=== PATIENT | female | born 1975 | race Caucasian/White ===

== ENCOUNTER 2020-06-14 10:34 | Outpatient (CLI) | payer BC, MEDICARE, SELFPAY ==
[2020-06-14 10:54] VITALS: BP 156/89; PULSE 89; RESP 19; TEMP 36.4; O2SAT 95
--- NOTE | 2020-06-14 11:09 | AMB.MCA ---
Patient Information Referred by: Stefany Symptom onset date: 06/11/20 COVID 19 common symptoms: positive fever(s), cough and non-productive cough COVID 19 other sytmptoms: negative chest pressure, chest pain, pleuritic pain, requiring oxygen or requiring more oxygen Severity: moderate Treatment prior to arrival: none [facility] COVID test results: No Data to Display outside results available, scanned (Scanned in from ) Criteria/Plan Inclusion/Exclusion Criteria weight >/= 40kg, + direct test </= 10 days ago and symptom onset </= 10 days ago has diabetes, receiving immunosuppressive therapy and has immunosuppressive disease not requiring hospitalization, not requiring oxygen (if not chronically on oxygen) and no increase oxygen requirement (if chronically on oxygen) Patient education patient/caregiver received/reviewed fact sheet, Emergency Use Authorization/unapproved drug status discussed with patient/caregiver, alternatives to this treatment discussed with patient/caregiver, risks and benefits of medication reviewed with patient/caregiver, patient/caregiver given opportunity for questions, which were answered and patient/caregiver consents to receiving Monoclonal Antibody Treatment Plan for treatment Meets criteria for Monoclonal Antibody infusion Ordering Monoclonal Antibody infusion for today
[2020-06-14 11:42] VITALS: BMI 36.9
[2020-06-14 12:11] VITALS: BP 131/76; PULSE 82; RESP 17; TEMP 36.6; O2SAT 98
[2020-06-14 12:26] VITALS: BP 149/91; PULSE 77; RESP 16; TEMP 36.5; O2SAT 98
--- NOTE | 2020-06-19 15:52 | DCPLANNER ---
Addendum entered by Ofelia Mccord 06/26/20 15:54: manager human resources called to check on patient 10 days after getting the BAM infusion. Patient stated that she is doing good, the infusion is doing its job. Patient stated that she has not been admitted to the hospital. Addendum entered by Ofelia Mccord 06/21/20 15:54: manager human resources called to check on patient after receiving the BAM infusion. Patient stated that she is feeling much better, still has a headache, no fever, and just a little cough. Original Note: manager human resources had message that patient received the BAM infusion. manager human resources called to check on patient after receiving the infusion. Patient stated that she tolorated the infusion good. Patient stated before the infusion that she had fever, she was short of breath, had a cough, and had a headache. Patient stated that after the infusion that she did not have a fever, a little bit of shortness of breath, she did not have a cough, no headache. Patient stated that she is feeling better, that the infusion helped quite a bit. Patient had a telehealth visit with her primary care 06.18.20.
== END 2020-06-14 13:40 | disposition home or self-care (01) ==
PROVIDERS: Family Provider Internal Medicine; PCP Internal Medicine; Referring Provider Nurse Practitioner Family; Visit Provider Internal Medicine Rheumatology
DX: U07.1 COVID-19 (principal)
CPT/HCPCS: J7050

== ENCOUNTER 2021-05-10 19:17 | Emergency (ER) | payer MEDICARE, BC, SELFPAY ==
--- NOTE | 2021-05-10 19:21 | W.ED.SOB ---
HPI - SOB/Dyspnea General: Chief Complaint: Asthma Stated Complaint: SOB Time Seen by Provider: 05/10/21 19:20 History of Present Illness: HPI Narrative: Ms. 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 Symptoms began approximately 1 week ago initially with sinus pressure and congestion. Yesterday she developed cough with yellow productive sputum. She tried her typical home therapies and felt like she was doing okay however subsequently worsened, cough was dry this morning and she feels more short of breath. Worse with exertion. She tried multiple albuterol treatments without significant relief. Overall the intensity symptoms is moderate to severe. Course has been worsening. She has had subjective fevers and chills. No other signs of systemic illness. She is vaccinated against Covid, does have sick exposures with young children. No other new exacerbating or alleviating factors identified. Patient does have a history of Covid and also history of recurrent pneumonia as well as viral pneumonia. She describes after Covid having a prolonged course and being a long hauler . Review of Systems General: Reports: 10 or more systems reviewed and unremarkable except in HPI and below PFSH ED PFSH: Medical History History of asthma Hx of diabetes mellitus Physical Exam Narrative: EXAM NARRATIVE: GENERAL/CONSTITUTIONAL - well-appearing. Increased respiratory effort Eyes - PERRL, no conjunctival injection ENMT - Atraumatic external nose and ears. Moist mucous membranes NECK - supple. trachea midline CARDIOVASCULAR - regular rate and rhythm. No significant peripheral edema RESPIRATORY -diminished to auscultation bilaterally, trace wheezes throughout. Tachypnea, dyspnea with full sentences. ABDOMEN/GI - Nontender/Nondistended. MSK - Extremities without obvious deformity or tenderness to palpation SKIN - Warm, Dry NEURO - alert and appropriately oriented. Moves all extremities equally. Course ED course: - Patient was seen and evaluated by me at bedside - Patient placed on cardiac monitors, IV access obtained - Initial evaluation notable for tachypnea, increased respiratory effort, diminished with some wheezes. Patient is dyspneic when attempting to speak full sentences however no evidence of fatigue or impending intervention required -RT treatment ordered. - Labs notable for no leukocytosis. Metabolic panel notable for decreased bicarb and increased anion gap. Delta troponin negative. Initially blood gas with marked respiratory alkalosis. Salicylate level added given surprising results of initial blood gas and was negative - Imaging notable for no evidence of pneumonia on chest x-ray. Given severity of patient's symptoms and history of autoimmune disorder/vasculitis CTA is warranted. No pulmonary embolism. - Upon serial reexamination after treatment the patient was significantly improved. Repeat blood gas with normalization of pH. Patient's respiratory effort is markedly improved and appears normal. Lung sounds improved. - Based on patient history, evaluation, labs, and imaging as interpreted the most likely cause of the patient's condition is respiratory distress with improvement after treatment. - The results of ED evaluation were discussed with the patient including prescriptions and/or symptomatic cares (if applicable) including appropriate and responsible use, followup plan, and return precautions. The patient verbalized understanding and felt safe for discharge. - Patient discharged in satisfactory condition. Vital Signs: Vital signs: Vital Signs Temperature 97.4 F L 05/10/21 19:22 Pulse Rate 88 05/10/21 23:18 Respiratory Rate 17 05/10/21 23:18 Blood Pressure 145/78 05/10/21 23:18 Pulse Oximetry 98 05/10/21 23:18 MDM - SOB/Dyspnea Medical Records: Attestation: I reviewed the patient's medical records. Lab Data: Attestation: I reviewed the patient's lab results. Labs: Lab Results 05/10/21 05/10/21 05/10/21 19:39 20:00 20:00 WBC 7.2 10^3/uL 10^3/ uL (4.0-10.0) RBC 4.94 10^6/uL 10^6 /uL (4.1-5.3) Hgb 14.5 g/dL g/dL (11.5-15.3) Hct 40.8 % % (37.0-47.0) MCV 82.6 fl fl (81-99) MCH 29.4 pg pg (28.0-34.0) MCHC 35.5 g/dL g/dL (30.0-36.0) RDW 12.3 % % (12.1-15.1) Plt Count 301 10^3/cmm 10^3 /cmm (130-400) MPV 9.1 fL fL (7.4-10.4) Neut % (Auto) 55.3 % % Lymph % (Auto) 33.0 % % [place] % (Auto) 8.7 % % Eos % (Auto) 2.2 % % Baso % (Auto) 0.4 % % Neut # (Auto) 3.95 10^3/uL 10^3 /uL (1.8-7.7) Lymph # (Auto) 2.4 10^3/uL 10^3/ uL (0.8-4.8) [place] # (Auto) 0.6 10^3/uL 10^3/ uL (0.2-0.9) Eos # (Auto) 0.2 10^3/uL 10^3/ uL (0.0-0.8) Baso # (Auto) 0.0 10^3/uL 10^3/ uL (0.0-0.1) Nucleated RBC % (a uto) 0 % % Nucleated RBCs # 0.0 /100WBC /100W BC Specimen Type Arterial Sample Site Radial, right ABG pH 7.73 H* (7.35-7.45) ABG pCO2 14.3 mmHg L* mmHg (35-45) ABG pO2 116.0 mmHg H mmHg (80.0-100.0) ABG HCO3 18.9 mmol/L L mmo l/L (22-26) ABG Base Excess 2.8 mmol/L H mmol /L (-2.0-2.0) Leonardo Test Pos VBG pH VBG pCO2 VBG pO2 VBG HCO3 VBG Base Excess VBG Hematocrit Hematocrit 44.0 % % (37-47) Hgb O2 Saturation 98.3 % % (95-100) Carboxyhemoglobin 0.7 %THgb %THgb (0.4-20.1) Methemoglobin 0.8 % % (0.4-1.5) Total Hemoglobin 14.4 g/dL g/dL (12-16) O2 Delivery Device Room air Mix House Tender ID [email or web address] Sodium 136 mmol/L mmol/L (136-145) Potassium 3.6 mmol/L mmol/L (3.5-5.1) Chloride 100 mmol/L mmol/L (98-107) Carbon Dioxide 17 mmol/L L mmol/ L (22-29) Anion Gap 22.6 H (5-19) BUN 11 mg/dL mg/dL (6-20) Creatinine 0.6 mg/dL mg/dL (0.5-0.9) GFR Calculation 107.2 mL/min mL/m in (90-130) Glucose 238 mg/dL H mg/dL (65-115) Calculated Osmolal ity 289 mOsm/kg mOsm/ kg (285-295) Lactic Acid Calcium 8.5 mg/dL mg/dL (8.5-10.5) Total Bilirubin 0.2 mg/dL mg/dL (0.15-1.2) AST 14 U/L U/L (0-32) ALT 19 U/L U/L (0-33) Alkaline Phosphata se 151 IU/L H IU/L (35-105) Troponin T Baselin e Troponin T 120 Min [place] Delta Troponin T NT-Pro-B Natriuret Pep 36 pg/mL pg/mL (0-125) Total Protein 6.7 g/dL g/dL (6.6-8.7) Albumin 4.1 g/dL g/dL (3.5-5.2) Globulin 2.6 g/dL g/dL (1.3-4.6) Procalcitonin 0.03 ng/mL ng/mL (0-0.5) Salicylates Influenza Type A A g Influenza Type B A g SARS-CoV-2 Ag (Rap id) 05/10/21 05/10/21 05/10/21 20:00 20:00 20:00 WBC RBC Hgb Hct MCV MCH MCHC RDW Plt Count MPV Neut % (Auto) Lymph % (Auto) [place] % (Auto) Eos % (Auto) Baso % (Auto) Neut # (Auto) Lymph # (Auto) [place] # (Auto) Eos # (Auto) Baso # (Auto) Nucleated RBC % (a uto) Nucleated RBCs # Specimen Type Sample Site ABG pH ABG pCO2 ABG pO2 ABG HCO3 ABG Base Excess Leonardo Test VBG pH VBG pCO2 VBG pO2 VBG HCO3 VBG Base Excess VBG Hematocrit Hematocrit Hgb O2 Saturation Carboxyhemoglobin Methemoglobin Total Hemoglobin O2 Delivery Device Mix House Tender ID Sodium Potassium Chloride Carbon Dioxide Anion Gap BUN Creatinine GFR Calculation Glucose Calculated Osmolal ity Lactic Acid Calcium Total Bilirubin AST ALT Alkaline Phosphata se Troponin T Baselin e 9 ng/L ng/L (0-10) Troponin T 120 Min [place] Delta Troponin T NT-Pro-B Natriuret Pep Total Protein Albumin Globulin Procalcitonin Salicylates Influenza Type A A g Negative (Negative) Influenza Type B A g Negative (Negative) SARS-CoV-2 Ag (Rap id) Negative (Negative) 05/10/21 05/10/21 05/10/21 20:00 22:06 22:10 WBC RBC Hgb Hct MCV MCH MCHC RDW Plt Count MPV Neut % (Auto) Lymph % (Auto) [place] % (Auto) Eos % (Auto) Baso % (Auto) Neut # (Auto) Lymph # (Auto) [place] # (Auto) Eos # (Auto) Baso # (Auto) Nucleated RBC % (a uto) Nucleated RBCs # Specimen Type Venous Sample Site Not specified ABG pH ABG pCO2 ABG pO2 ABG HCO3 ABG Base Excess Leonardo Test N/a VBG pH 7.40 (7.32-7.42) VBG pCO2 42.9 mmHg mmHg (41-51) VBG pO2 30.3 mmHg mmHg (25-40) VBG HCO3 26.8 mmol/L mmol/ L (24-28) VBG Base Excess 1.7 mmol/L mmol/L (-3.0-3.0) VBG Hematocrit 42.1 % % (37-47) Hematocrit Hgb O2 Saturation Carboxyhemoglobin Methemoglobin Total Hemoglobin O2 Delivery Device Mix House Tender ID [email or web address] Sodium Potassium Chloride Carbon Dioxide Anion Gap BUN Creatinine GFR Calculation Glucose Calculated Osmolal ity Lactic Acid 1.8 mmol/L mmol/L (0.5-2.2) Calcium Total Bilirubin AST ALT Alkaline Phosphata se Troponin T Baselin e Troponin T 120 Min [place] Delta Troponin T NT-Pro-B Natriuret Pep Total Protein Albumin Globulin Procalcitonin Salicylates < 0.3 mg/dL L mg/ dL (3-10) Influenza Type A A g Influenza Type B A g SARS-CoV-2 Ag (Rap id) 05/10/21 22:10 WBC RBC Hgb Hct MCV MCH MCHC RDW Plt Count MPV Neut % (Auto) Lymph % (Auto) [place] % (Auto) Eos % (Auto) Baso % (Auto) Neut # (Auto) Lymph # (Auto) [place] # (Auto) Eos # (Auto) Baso # (Auto) Nucleated RBC % (a uto) Nucleated RBCs # Specimen Type Sample Site ABG pH ABG pCO2 ABG pO2 ABG HCO3 ABG Base Excess Leonardo Test VBG pH VBG pCO2 VBG pO2 VBG HCO3 VBG Base Excess VBG Hematocrit Hematocrit Hgb O2 Saturation Carboxyhemoglobin Methemoglobin Total Hemoglobin O2 Delivery Device Mix House Tender ID Sodium Potassium Chloride Carbon Dioxide Anion Gap BUN Creatinine GFR Calculation Glucose Calculated Osmolal ity Lactic Acid Calcium Total Bilirubin AST ALT Alkaline Phosphata se Troponin T Baselin e Troponin T 120 Min [place] 8.62 ng/L ng/L (0-10) Delta Troponin T -0.38 ABS# L ABS# (0-10) NT-Pro-B Natriuret Pep Total Protein Albumin Globulin Procalcitonin Salicylates Influenza Type A A g Influenza Type B A g SARS-CoV-2 Ag (Rap id) EKG Data^: EKG 1: Attestation: I personally reviewed and interpreted this EKG as follows: EKG Interpretation Date: 05/10/21 EKG interpretation time: 19:53 Interpretation: Twelve-lead EKG shows a regular rhythm at a rate of 80. FL interval 156, QRS duration 90, QTc 425. Normal axis Interpretation: Sinus rhythm. Nonspecific ST segment abnormalities. EKG 2: Attestation: I personally reviewed and interpreted this EKG as follows: EKG Interpretation Date: 05/10/21 EKG interpretation time: 21:48 Interpretation: Twelve-lead EKG shows a regular rhythm at a rate of 80. FL interval 174, QRS duration 98, QTc 447. Normal axis. Interpretation: Sinus rhythm. Discharge Plan Discharge Patient Disposition: Home Clinical Impression: Asthma with acute exacerbation Condition: Stable Prescriptions: New prednisone 50 mg tablet 50 mg PO DAILY 5 Days Qty: 5 RF: 0 doxycycline hyclate 100 mg tablet 100 mg PO BID 7 Days Qty: 14 RF: 0 albuterol sulfate 90 mcg/actuation HFA aerosol inhaler See Rx Instructions .ROUTE .COMPLEX Qty: 8.5 RF: 0 No Action Leukeran 2 mg Tablet 4 mg PO DAILY RF: 0 diltiazem HCl 240 mg Tablet Extended Release 24 Hr 240 mg PO DAILY RF: 0 Humira Pen 40 mg/0.8 mL Pen Injector Kit 40 mg SUBCUT Q14D RF: 0 Toujeo Max U-300 SoloStar 300 unit/mL (3 mL) Insulin Pen 80 unit SUBCUT DAILY RF: 0 Otezla Starter 30 mg 30 mg PO DAILY RF: 0 Discharge Orders: Discharge ED (Routine); Ordered 05/10/21 Ordered By: Santos Rai Referrals: Re Wilcox MD [Primary Care Provider] - Discharge Diet: Usual diet Discharge Activity: Resume usual activity Patient Instructions: Asthma (ED) Activity Restrictions/Additional Instructions: Thank you for visiting the emergency department. You were seen and evaluated for shortness of breath. The exact cause of your symptoms is unclear though likely related to exacerbation of your asthma. We are pleased that this improved with treatment. You will be given prescriptions. Please follow-up with your primary care provider. Please return to the emergency department for worsening symptoms or anything else that you are concerned about and feel needs emergency department evaluation. Coding Level of Care Code ED Commercial Hvac Service Technician for Terell oTrrez
[2021-05-10 19:22] VITALS: BP 154/86; PULSE 104; RESP 26; TEMP 36.3; O2SAT 100; BMI 38.4
--- NOTE | 2021-05-10 19:39 | XRR_ITS ---
PROCEDURE INFORMATION: Exam: XR Chest Exam date and time: 05/10/2021 7:39 PM Age: 46 years old Clinical indication: Shortness of breath; Additional info: SOB TECHNIQUE: Imaging protocol: XR of the chest. Views: 1 view. COMPARISON: No relevant prior studies available. FINDINGS: Lungs: Unremarkable. No consolidation. Pleural spaces: Unremarkable. No pleural effusion. No pneumothorax. Heart/Mediastinum: Unremarkable. No cardiomegaly. Bones/joints: Unremarkable. XR/XR chest 1V portable [id number] IMPRESSION: No acute findings. Radiation Dose CTDIVOL = (mGy): DLP = (mGy-cm)
--- NOTE | 2021-05-10 19:39 | ECG_ITS ---
[facility] Test Date: 2021-05-10 Pat Name: Lisa Diana Department: Room: Gender: Female Treater Helper: : 1975 Requested By: Santos Rai Order Number: [id number] Luis Fernando MD: LASHAE RUIZ Measurements Intervals [place] Rate: 80 P: 41 SC: 156 QRS: 48 QRSD: 90 T: 30 QT: 389 QTc: 451 Interpretive Statements SINUS RHYTHM No previous ECG available for comparison Electronically Signed On 05-13-2021 12:56:11 PASTRY COOK HELPER by LASHAE RUIZ [id number]
[2021-05-10 20:02] LABS: Base Excess ABG 2.8 mmol/L (-2.0-2.0); Blood Gas Allen Test Pos; Blood Gas Sample Site Radial, right; Blood Gas Sample Type Arterial; Carboxyhemoglobin 0.7 %THgb (0.4-20.1); HCO3 ABG 18.9 mmol/L (22-26); HGB O2 Sat 98.3 % (95-100); Methemoglobin 0.8 % (0.4-1.5); Oxygen Device ROOM AIR; Total Hemoglobin 14.4 g/dL (12-16)
[2021-05-10 20:04] LABS: ABG PCO2 14.3 mmHg (35-45); ABG PH Result 7.73 (7.35-7.45)
[2021-05-10 20:06] LABS: Basophils % 0.4 %; Eosinophils # 0.2 10^3/uL (0.0-0.8); Eosinophils % 2.2 %; Hematocrit 40.8 % (37.0-47.0); Hemoglobin 14.5 g/dL (11.5-15.3); Lymphocytes # 2.4 10^3/uL (0.8-4.8); Mean Corpuscular HGB Conc 35.5 g/dL (30.0-36.0); Mean Corpuscular Hemoglobin 29.4 pg (28.0-34.0); Mean Corpuscular Volume 82.6 fl (81-99); Mean Platelet Volume 9.1 fL (7.4-10.4); Monocytes # 0.6 10^3/uL (0.2-0.9); Monocytes % 8.7 %; Neutrophils # 3.95 10^3/uL (1.8-7.7); Neutrophils % 55.3 %; Nucleated Red Blood Cells % 0 %; Platelet Count 301 10^3/cmm (130-400); Red Blood Count 4.94 10^6/uL (4.1-5.3); Red Cell Distribution Width 12.3 % (12.1-15.1); White Blood Count 7.2 10^3/uL (4.0-10.0)
[2021-05-10] MEDS: sodium chloride 0.9% 500 ML 999 ML IV (20:10)
[2021-05-10 20:23] VITALS: PULSE 85; RESP 36; O2SAT 100
[2021-05-10] MEDS: ipratropium-albuterol 3 mL Neb INHALATION (20:25)
[2021-05-10 20:27] VITALS: BP 146/80; PULSE 78; RESP 18; O2SAT 96
[2021-05-10 20:34] LABS: Influenza A by IFA Negative (Negative); Influenza B by IFA Negative (Negative)
[2021-05-10 20:35] LABS: SARS Covid-2 Antigen Negative (Negative)
[2021-05-10 20:40] LABS: Troponin(5th) Baseline 9 ng/L (0-10)
[2021-05-10 20:41] LABS: NT Pro B Type Natriuretic Pept 36 pg/mL (0-125); Procalcitonin 0.03 ng/mL (0-0.5)
[2021-05-10 20:53] LABS: Alanine Aminotransferase 19 U/L (0-33); Albumin Level 4.1 g/dL (3.5-5.2); Alkaline Phosphatase 151 IU/L (35-105); Anion Gap 22.6 (5-19); Aspartate Amino Transferase 14 U/L (0-32); Blood Urea Nitrogen 11 mg/dL (6-20); Calcium 8.5 mg/dL (8.5-10.5); Carbon Dioxide 17 mmol/L (22-29); Chloride 100 mmol/L (98-107); Globulin 2.6 g/dL (1.3-4.6); Glomerular Filtration Rate 107.2 mL/min (90-130); Glucose 238 mg/dL (65-115); Osmolality Calculated 289 mOsm/kg (285-295); Potassium 3.6 mmol/L (3.5-5.1); Sodium 136 mmol/L (136-145); Total Bilirubin 0.2 mg/dL (0.15-1.2); Total Protein 6.7 g/dL (6.6-8.7)
[2021-05-10 21:08] LABS: Salicylate < 0.3 mg/dL (3-10)
--- NOTE | 2021-05-10 21:11 | CTR_ITS ---
PROCEDURE INFORMATION: Exam: CTA Chest With Contrast Exam date and time: 05/10/2021 9:11 PM Age: 46 years old Clinical indication: Cough and dyspnea and shortness of breath; Patient HX: Cough with SOB and dyspnea. Pco2 of 14.3. History of vasculitis. ; Additional info: Resp distress, history vasculitis TECHNIQUE: Imaging protocol: Computed tomographic angiography of the chest with contrast. 3D rendering (Not supervised by radiologist): MIP and/or 3D reconstructed images were created by the technologist. Radiation optimization: All CT scans at this facility use at least one of these dose optimization techniques: automated exposure control; mA and/or kV adjustment per patient size (includes targeted exams where dose is matched to clinical indication); or iterative reconstruction. Contrast material: OMNI 350; Contrast volume: 116 ml; Contrast route: INTRAVENOUS (IV); COMPARISON: CR (CHEST, ) 05/10/2021 8:08 PM RADIATION DOSE METRICS: Total DLP (mGy-cm): 1207.35 FINDINGS: Pulmonary arteries: Normal. No pulmonary emboli. Aorta: Unremarkable. No aortic aneurysm. No aortic dissection. Lungs: Unremarkable. No consolidation. No masses. Pleural spaces: Unremarkable. No pneumothorax. No pleural effusion. Heart: Unremarkable. No cardiomegaly. No pericardial effusion. Lymph nodes: Unremarkable. No enlarged lymph nodes. Bones/joints: Unremarkable. No acute fracture. Soft tissues: Unremarkable. CT/CT angio chest PE protcl [id number] IMPRESSION: No acute findings. Radiation Dose CTDIVOL = (mGy): DLP = 1207.35 (mGy-cm)
[2021-05-10] MEDS: iohexol 350 mg/mL 100 mL Btl IV ×2 (21:29→21:33)
--- NOTE | 2021-05-10 21:39 | ECG_ITS ---
[facility] Test Date: 2021-05-10 Pat Name: Lisa Diana Department: Room: Gender: Female Marketing Secretary: : 1975 Requested By: Santos Rai Order Number: [id number] Reading MD: LASHAE RUIZ Measurements Intervals [place] Rate: 80 P: 43 VT: 174 QRS: 0 QRSD: 98 T: 12 QT: 411 QTc: 477 Interpretive Statements SINUS RHYTHM Compared to ECG 05/10/2021 19:46:20 No significant changes Electronically Signed On 05-13-2021 13:01:55 WINDING RACK OPERATOR by LASHAE RUIZ [id number]
[2021-05-10 22:44] LABS: Lactic Sepsis W/Reflex 1.8 mmol/L (0.5-2.2)
[2021-05-10 22:46] LABS: Base Excess VBG 1.7 mmol/L (-3.0-3.0); Blood Gas Sample Site Not specified; Blood Gas Sample Type Venous; HCO3 VBG 26.8 mmol/L (24-28); PCO2 VBG 42.9 mmHg (41-51); PO2 VBG 30.3 mmHg (25-40); Venous Blood Gas Hematocrit 42.1 % (37-47)
[2021-05-10 23:04] LABS: Troponin 5 2HR 8.62 ng/L (0-10)
[2021-05-10 23:07] LABS: Troponin 5 2HR Delta -0.38 ABS# (0-10)
[2021-05-10 23:18] VITALS: BP 145/78; PULSE 88; RESP 17; O2SAT 98
== END 2021-05-10 23:22 | disposition home or self-care (01) ==
PROVIDERS: Emergency Provider Emergency Medicine; PCP Internal Medicine
DX: J45.901 Unspecified asthma with (acute) exacerbation (principal); M35.2 Behcet's disease
CPT/HCPCS: 36600; 71045; 71275; 80053; 80307; 82803; 82805; 83605; 83880; 84145; 84484; 85025; 87040; 87426; 87804; 93005; 94640; 99284; J2930; J7040; Q9967

== ENCOUNTER 2021-06-25 20:07 | Observation (INO) | payer BC, MEDICARE, SELFPAY ==
[2021-06-25 20:11] VITALS: BP 163/75; PULSE 89; RESP 16; TEMP 37; O2SAT 98; BMI 38.4
--- NOTE | 2021-06-25 20:16 | ED_ITS ---
HPI - Chest Pain General: Chief Complaint: Chest Pain Stated Complaint: Chest Pains Time Seen by Provider: 06/25/21 20:15 History of Present Illness: HPI narrative: Mr. Diana is a 46-year-old lady with complex past medical history including COVID long-haul, Behcet's disease, history of endocarditis with resultant minor heart attack , history of arrhythmia, and history of intermittent chest pain who presents emergency department due to chest pain. She reports symptom onset at rest after eating at approximately 630 or 7 this evening. She denies specific provoking event that she can recall. She has pressure that is in her chest and radiates to the neck and down the left arm. Mild associated nausea and lightheadedness. Associated generalized malaise. She reports that this is similar to prior episodes which she gets roughly weekly however those typically with nitroglycerin x1 and this 1 has persisted despite nitroglycerin x2. She denies infectious symptoms. Overall the course of symptoms has persisted. Intensity is moderate to severe. No other specific changes in health, exacerbating, relieving factors identified. MD complaint: chest discomfort Pertinent past history: prior OR Onset (ago): hour(s) Timing of current episode: constant and increasing Prior episodes: Yes Onset: after eating Pain location: substernal Pain radiation: left arm and neck Severity: moderate Quality: other Relieving factors: nothing Associated symptoms: Reports dyspnea and nausea Treatment prior to arrival: nitroglycerin Review of Systems General: Reports: 10 or more systems reviewed and unremarkable except in HPI and below Resp: Reports: dyspnea GI: Reports: nausea [facility] ED PFSH: Medical History (Updated 06/27/21 @ 00:01 by ) Behcet's disease History of asthma History of hypothyroidism Hx of diabetes mellitus Hx of endocrine hypertension Hx of steroid therapy Surgical History No significant past surgical history Family History Denies family history of Family history of premature coronary artery disease Social History Smoking and tobacco status: never smoked Physical Exam Const: COMMON NORMALS: alert GENERAL APPEARANCE: cooperative and well developed HENMT: COMMON NORMALS: normocephalic and atraumatic HEAD & SCALP: normocephalic and atraumatic THROAT: posterior oropharynx normal Eye: COMMON NORMALS: conjunctivae normal CONJUNCTIVA: Yes conjunctivae normal SCLERA: sclerae normal Neck/C-Spine: COMMON NORMALS: supple GENERAL: Yes trachea midline Resp: COMMON NORMALS: normal respiratory effort EFFORT & INSPECTION: Yes able to speak in complete sentences Cardio: COMMON NORMALS: regular rate and regular rhythm RATE: regular rate RHYTHM: regular rhythm GI: COMMON NORMALS: Soft to palpation PALPATION: Yes Soft to palpation and No Tenderness to palpation present (GI) PERCUSSION: normal to percussion Extremity: GENERAL: Yes normal exam except as noted and No edema Neuro: COMMON NORMALS: moves all extremities SENSORIUM/ORIENTATION: Yes alert and No Orientation impaired Psych: COMMON NORMALS: mental status grossly normal and Normal thought process present THOUGHT PROCESS: Normal thought process present Course ED course: - Patient was seen and evaluated by me at bedside - Patient placed on cardiac monitors, IV access obtained - Initial evaluation notable for exam as above -Symptom treatment ordered - Labs notable for No leukocytosis, no acute electrolyte derangement to explain patient's symptoms. - Imaging notable for no lobar consolidation. Incidental finding of radiopaque focus external - Upon serial reexamination after treatment the patient was similar. - Based on patient history, evaluation, labs, and imaging as interpreted the most likely cause of the patient's condition is unspecified cause of chest pain. This is a challenging situation as we do not currently have records from prior hospitalization for reported OR. Patient does not likely fall under inclusion criteria for clinical decision making tools. - The results of ED evaluation were discussed with the patient including possible disposition options. Patient uncomfortable emergency department plan and given clinical history which is very atypical for age it is reasonable to admit the patient for further cardiac evaluation. -Hospitalist service contacted and agreed admit the patient. - Patient was admitted without further deterioration or significant events. Note: Click bubbles or prepopulated mazariegos in note writing are used for assistance with data collection and billing and are inherently more limited than narrative and other text portions of this note. Please use narrative for additional clinical history and defer to narrative/free test for any case of contradictory information. If information appears in only free text or click bubble it should be considered present or absent as reported. Please contact note writer editor for clarifications of clinical information or contradictory information. MDM is a brief summary, contradictory or erroneous seeming information should be clarified and full note should be reviewed. Vital Signs: Vital signs: Vital Signs Temperature 98.0 F 06/26/21 07:15 Pulse Rate 104 H 06/26/21 17:48 Respiratory Rate 23 H 06/26/21 17:30 Blood Pressure 137/75 06/26/21 17:48 Pulse Oximetry 96 06/26/21 17:48 MDM - Chest Pain MDM Narrative: Medical decision making narrative: 46-year-old lady with reported history of OR presenting with chest pain. Patient has a history of frequent chest pain however this is a change in characteristic as this did not improve with nitroglycerin as typical. Limited history is we do not have records from prior hospitalization. Patient requires further inpatient evaluation given complex history of likely falling out side of clinical decision-making or risk stratification studies. Medical Records: Attestation: I reviewed the patient's medical records. Lab Data: Attestation: I reviewed the patient's lab results. Labs: Lab Results 06/25/21 06/25/21 06/25/21 20:30 20:36 20:36 WBC 7.4 10^3/uL 10^3/ uL (4.0-10.0) RBC 4.81 10^6/uL 10^6 /uL (4.1-5.3) Hgb 13.8 g/dL g/dL (11.5-15.3) Hct 40.6 % % (37.0-47.0) MCV 84.4 fl fl (81-99) MCH 28.7 pg pg (28.0-34.0) MCHC 34.0 g/dL g/dL (30.0-36.0) RDW 12.7 % % (12.1-15.1) Plt Count 291 10^3/cmm 10^3 /cmm (130-400) MPV 9.1 fL fL (7.4-10.4) Neut % (Auto) 57.2 % % Lymph % (Auto) 29.6 % % [place] % (Auto) 9.3 % % Eos % (Auto) 2.8 % % Baso % (Auto) 0.7 % % Neut # (Auto) 4.24 10^3/uL 10^3 /uL (1.8-7.7) Lymph # (Auto) 2.2 10^3/uL 10^3/ uL (0.8-4.8) [place] # (Auto) 0.7 10^3/uL 10^3/ uL (0.2-0.9) Eos # (Auto) 0.2 10^3/uL 10^3/ uL (0.0-0.8) Baso # (Auto) 0.1 10^3/uL 10^3/ uL (0.0-0.1) Nucleated RBC % (a uto) 0 % % Nucleated RBCs # 0.0 /100WBC /100W BC D-Dimer 0.33 ug/mIFEU ug/ mIFEU (0-0.59) Sodium 138 mmol/L mmol/L (136-145) Potassium 3.6 mmol/L mmol/L (3.5-5.1) Chloride 104 mmol/L mmol/L (98-107) Carbon Dioxide 20 mmol/L L mmol/ L (22-29) Anion Gap 17.6 (5-19) BUN 11 mg/dL mg/dL (6-20) Creatinine 0.6 mg/dL mg/dL (0.5-0.9) GFR Calculation 107.2 mL/min mL/m in (90-130) Glucose 125 mg/dL H mg/dL (65-115) Calculated Osmolal ity 287 mOsm/kg mOsm/ kg (285-295) Calcium 8.7 mg/dL mg/dL (8.5-10.5) Total Bilirubin 0.2 mg/dL mg/dL (0.15-1.2) AST 21 U/L U/L (0-32) ALT 28 U/L U/L (0-33) Alkaline Phosphata se 158 IU/L H IU/L (35-105) Troponin T Baselin e Troponin T 120 Min [place] Delta Troponin T NT-Pro-B Natriuret Pep 28 pg/mL pg/mL (0-125) Total Protein 6.3 g/dL L g/dL (6.6-8.7) Albumin 4.1 g/dL g/dL (3.5-5.2) Globulin 2.2 g/dL g/dL (1.3-4.6) Lipase 40 U/L U/L (13-60) 01/11/22 01/11/22 20:36 22:15 WBC RBC Hgb Hct MCV MCH MCHC RDW Plt Count MPV Neut % (Auto) Lymph % (Auto) [place] % (Auto) Eos % (Auto) Baso % (Auto) Neut # (Auto) Lymph # (Auto) [place] # (Auto) Eos # (Auto) Baso # (Auto) Nucleated RBC % (a uto) Nucleated RBCs # D-Dimer Sodium Potassium Chloride Carbon Dioxide Anion Gap BUN Creatinine GFR Calculation Glucose Calculated Osmolal ity Calcium Total Bilirubin AST ALT Alkaline Phosphata se Troponin T Baselin e 9 ng/L ng/L (0-10) Troponin T 120 Min [place] 7.87 ng/L ng/L (0-10) Delta Troponin T -1.13 ABS# L ABS# (0-10) NT-Pro-B Natriuret Pep Total Protein Albumin Globulin Lipase EKG Data^: EKG 1: Attestation: I personally reviewed and interpreted this EKG as follows: EKG interpretation date: 06/25/21 EKG interpretation time: 22:31 Interpretation: Twelve-lead EKG shows a regular rhythm at a rate of 80. OH interval 157, QRS duration 97, QTc 413. Normal axis. Interpretation: Sinus rhythm. Nonspecific ST segment abnormalities EKG 2: Attestation: I personally reviewed and interpreted this EKG as follows: EKG interpretation date: 06/25/21 EKG interpretation time: 20:25 Interpretation: Twelve-lead EKG shows a rhythm at a rate of 86. OH interval 153, QRS duration 89, QTc 417. Normal axis. Interpretation: Sinus rhythm. Nonspecific ST segment abnormalities. Discharge Plan Discharge Patient Disposition: Placed in Observation Admit Provider: Marsha Zamora Clinical Impression: Chest pain Discharge Diet: Cardiac Discharge Activity: Resume usual activity Coding Level of Care Code ED Natural Sciences Manager for Chg Fwd
--- NOTE | 2021-06-25 20:33 | XRR_ITS ---
PROCEDURE INFORMATION: Exam: XR Chest Exam date and time: 06/25/2021 8:33 PM Age: 46 years old Clinical indication: Chest wall pain; Additional info: Chest pain TECHNIQUE: Imaging protocol: XR of the chest. Views: 1 view. COMPARISON: CR XR chest 1V portable [id number] 05/10/2021 8:08 PM FINDINGS: Lungs: Lungs are clear bilaterally. Pleural spaces: No pleural effusion. No pneumothorax. Heart/Mediastinum: The cardiac silhouette and mediastinal contours are unremarkable. Bones/joints: Unremarkable for age. Other findings: There is a radiopaque focus projecting over the right upper quadrant of the abdomen, it is uncertain whether this is internal or external to the patient. XR/XR chest 1V portable [id number] IMPRESSION: 1. No acute cardiopulmonary process. 2. There is a radiopaque focus projecting over the right upper quadrant of the abdomen, it is uncertain whether this is internal or external to the patient. Recommend clinical correlation.
--- NOTE | 2021-06-25 20:34 | ECG_ITS ---
[facility] Test Date: 2021-06-25 Pat Name: Lisa Diana Department: Room: Gender: Female Driver Courier: : 1975 Requested By: Santos Rai Order Number: [id number] Luis Fernando MD: Angélica Lyles M.D. Measurements Intervals [place] Rate: 86 P: 50 MT: 153 QRS: 13 QRSD: 89 T: 45 QT: 374 QTc: 448 Interpretive Statements SINUS RHYTHM WITH OCCASIONAL VENTRICULAR PREMATURE COMPLEXES Compared to ECG 05/10/2021 21:39:38 Ventricular premature complex(es) now present Electronically Signed On 06-26-2021 19:55:01 GLUER MACHINE OPERATOR by Angélica Lyles M.D. [email or web address] [email or web address]/[id number]
[2021-06-25 20:42] LABS: Basophils # 0.1 10^3/uL (0.0-0.1); Basophils % 0.7 %; Eosinophils # 0.2 10^3/uL (0.0-0.8); Eosinophils % 2.8 %; Hematocrit 40.6 % (37.0-47.0); Hemoglobin 13.8 g/dL (11.5-15.3); Lymphocytes # 2.2 10^3/uL (0.8-4.8); Lymphocytes % 29.6 %; Mean Corpuscular Hemoglobin 28.7 pg (28.0-34.0); Mean Corpuscular Volume 84.4 fl (81-99); Mean Platelet Volume 9.1 fL (7.4-10.4); Monocytes # 0.7 10^3/uL (0.2-0.9); Monocytes % 9.3 %; Neutrophils # 4.24 10^3/uL (1.8-7.7); Neutrophils % 57.2 %; Nucleated Red Blood Cells % 0 %; Platelet Count 291 10^3/cmm (130-400); Red Blood Count 4.81 10^6/uL (4.1-5.3); Red Cell Distribution Width 12.7 % (12.1-15.1); White Blood Count 7.4 10^3/uL (4.0-10.0)
[2021-06-25 20:44] VITALS: RESP 16
[2021-06-25] MEDS: aspirin 81 mg Chew Tablet 324 MG PO (20:44)
[2021-06-25] MEDS: morphine 4 mg/mL SDV 1 mL IVP ×2 (20:44→21:47)
[2021-06-25 21:07] LABS: Troponin(5th) Baseline 9 ng/L (0-10)
[2021-06-25 21:15] LABS: Alanine Aminotransferase 28 U/L (0-33); Albumin Level 4.1 g/dL (3.5-5.2); Alkaline Phosphatase 158 IU/L (35-105); Anion Gap 17.6 (5-19); Aspartate Amino Transferase 21 U/L (0-32); Blood Urea Nitrogen 11 mg/dL (6-20); Calcium 8.7 mg/dL (8.5-10.5); Carbon Dioxide 20 mmol/L (22-29); Chloride 104 mmol/L (98-107); Globulin 2.2 g/dL (1.3-4.6); Glomerular Filtration Rate 107.2 mL/min (90-130); Glucose 125 mg/dL (65-115); Lipase 40 U/L (13-60); NT Pro B Type Natriuretic Pept 28 pg/mL (0-125); Osmolality Calculated 287 mOsm/kg (285-295); Potassium 3.6 mmol/L (3.5-5.1); Sodium 138 mmol/L (136-145); Total Bilirubin 0.2 mg/dL (0.15-1.2); Total Protein 6.3 g/dL (6.6-8.7)
[2021-06-25 21:47] VITALS: RESP 16
[2021-06-25] MEDS: nitroglycerin 0.4 mg sublingual Tablet SUBLINGUAL (21:47)
[2021-06-25] MEDS: ondansetron 2 mg/ML SDV 2 mL 4 MG IVP (21:47)
[2021-06-25 22:00] VITALS: PULSE 90
--- NOTE | 2021-06-25 22:34 | ECG_ITS ---
[facility] Test Date: 2021-06-25 Pat Name: Lisa Diana Department: Room: Gender: Female Physicist Astrophysics: : 1975 Requested By: Santos Rai Order Number: [id number] Luis Fernnado MD: Angélica Lyles M.D. Measurements Intervals [place] Rate: 80 P: 38 VT: 157 QRS: 10 QRSD: 87 T: 30 QT: 377 QTc: 435 Interpretive Statements SINUS RHYTHM Compared to ECG 06/25/2021 20:22:26 Ventricular premature complex(es) no longer present Electronically Signed On 06-26-2021 20:06:42 TALENT MANAGEMENT MANAGER by Angélica Lyles M.D. [id number]
[2021-06-25 22:50] LABS: Troponin 5 2HR 7.87 ng/L (0-10)
[2021-06-25 22:54] LABS: Troponin 5 2HR Delta -1.13 ABS# (0-10)
[2021-06-26] VITALS (11 sets, daily range): BP systolic 132–162; BP diastolic 65–90; PULSE 83–104; RESP 14–23; TEMP 36.7; O2SAT 94–98; BMI 39.7
--- NOTE | 2021-06-26 02:34 | ECG_ITS ---
[facility] Test Date: 2021-06-26 Pat Name: Lisa Diana Department: Room: 104 Gender: Female Foreign Language Instructor: : 1975 Requested By: Santos Rai Order Number: [id number] Luis Fernando MD: Angélica Lyles M.D. Measurements Intervals [place] Rate: 86 P: 50 CO: 155 QRS: 6 QRSD: 93 T: 30 QT: 372 QTc: 447 Interpretive Statements SINUS RHYTHM Compared to ECG 06/25/2021 22:24:04 No significant changes Electronically Signed On 06-26-2021 20:07:42 STUDENT DEVELOPMENT DEAN by Angélica Lyles M.D. [id number]
[2021-06-26 03:42] LABS: Troponin 5 6HR 9.99 ng/L (0-10); Troponin 5 6HR Delta 0.99 ng/L (0-12)
[2021-06-26 04:01] LABS: D Dimer 0.33 ug/mIFEU (0-0.59)
--- NOTE | 2021-06-26 06:18 | P.HP_ITS ---
Providers/Chief Complaint Admitting Physician: Marsha Zamora MD Chief Complaint: Chest Pains History of Present Illness Lisa Diana is a 46 year old female with past medical history of Behcet's disease, history of endocarditis which appears has been attributed to COVID-19 1 year ago , was on oxygen until 6 months after diagnosis, now improved and history of intermittent chest pain. He had a recent stress test at [facility] in April 2021 which was noted to be abnormal. States that she was told she has apical wall abnormalities and also a low ejection fraction, follow-up was recommended with cardiology and she has an upcoming appointment on next Thursday. It appears the plan was to do a cardiac catheterization. She presented to the emergency room tonight with chief complaints of chest pain that started at around 7 PM. Due to increasing frequency of this chest pain episode she had recently been told that until her catheterization she should try as needed sublingual nitroglycerin. Yesterday she evening she took 2 pills of sublingual nitroglycerin however it did not have any improvement and she presented to the ER. Since coming here with chest pain was intermittent however as of 2 AM overnight she has not had any further chest pain. Her EKG today shows sinus rhythm without acute ST-T wave changes. Her baseline troponin was at 9, 2-hour at 7.8 with a delta of -1, 6-hour troponin is currently pending she denies any other complaints such as shortness of breath palpitations syncope. She has a history of obstructive sleep apnea for which she wears CPAP at nighttime. Review of Systems General: Reports: 10 or more systems reviewed and unremarkable except in HPI and below Const: Denies: fever(s), chills or body aches Eyes: Denies: change in vision, blurry vision or photophobia ENMT: Reports: hoarseness; Denies: throat pain, enlarged tonsils, odynophagia or nasal congestion Card: Denies: chest pain, palpitations, irregular heart rhythm, edema, swelling of feet/ankles, lightheadedness, pre-syncope, dyspnea on exertion or orthopnea Resp: Denies: dyspnea, productive cough, non-productive cough, wheezing, stridor, pain on inspiration, change in phlegm color, hemoptysis or chest congestion GI: Denies: abdominal pain, nausea, vomiting, hematemesis, coffee ground emesis, dysphagia, heartburn, diarrhea, constipation, GI cramping, change in stool character, hematochezia or melena : Denies: flank pain, difficulty voiding, dysuria, urinary frequency, urinary urgency, urinary hesitancy or hematuria Musc: Denies: neck pain, back pain, extremity pain, joint swelling, joint warmth or deformity Neuro: Denies: headache(s), numbness in extremities, weakness in extremities, sensory changes, difficulty walking, frequent falls, dizziness, vertigo, behavioral changes, Slurred speech present or seizure-like activity Psych: Denies: anxiety, depression, suicidal ideation or homicidal ideation Endo: Denies: polyuria, polydipsia, tired all the time, cold intolerance or hot flashes Brandyn/Lymph: Denies: easy bruising or easy bleeding Medications/Allergies Home Medications Medication Instructions Recorded Confirmed Last Taken Type adalimumab [Humira Pen] 40 mg SUBCUT Q14D 06/14/20 06/25/21 Unknown History chlorambucil [Leukeran] 4 mg PO DAILY 06/14/20 06/25/21 06/25/21 History diltiazem HCl 240 mg PO DAILY 06/14/20 06/25/21 06/25/21 History insulin glargine U-300 conc 100 unit SUBCUT DAILY 06/14/20 06/25/21 06/25/21 History [Toujeo Max U-300 SoloStar] albuterol sulfate 2 puff INHALATION Q6H PRN 06/25/21 06/25/21 Unknown History aspirin 81 mg PO DAILY 06/25/21 06/25/21 06/25/21 History atorvastatin 40 mg PO DAILY 06/25/21 06/25/21 06/24/21 History clonidine HCl 0.1 mg PO Q8H PRN 06/25/21 06/25/21 Unknown History insulin lispro [Humalog KwikPen See Rx Instructions .ROUTE .COMPLEX 06/25/21 06/25/21 Unknown History Insulin] irbesartan 150 mg PO DAILY 06/25/21 06/25/21 06/25/21 History levothyroxine [Synthroid] 50 mcg PO DAILY 06/25/21 06/25/21 06/25/21 History magnesium 500 mg PO DAILY 06/25/21 06/25/21 06/25/21 History nitroglycerin 0.4 mg SUBLINGUAL Q5MIN PRN 06/25/21 06/25/21 Unknown History tacrolimus 1 applic TOPICAL DAILY PRN 06/25/21 06/25/21 Unknown History tizanidine 4 mg PO BID PRN 06/25/21 06/25/21 Unknown History vitamin A 2,400 mcg PO DAILY 06/25/21 06/25/21 06/25/21 History vitamin E 400 unit PO DAILY 06/25/21 06/25/21 06/25/21 History Allergies Allergy/AdvReac Type Severity Reaction Status Date / Time Latex, Natural Rubber Allergy ALGY-Hives Verified 05/10/21 17:58 Sulfa (Sulfonamide Allergy ALGY-Hives Verified 05/10/21 17:58 Antibiotics) PFSH Acute PFSH: Medical History (Updated 06/26/21 @ 06:25 by Marsha Zamora MD) Behcet's disease History of asthma History of hypothyroidism Hx of diabetes mellitus Hx of endocrine hypertension Hx of steroid therapy Surgical History No significant past surgical history Family History Denies family history of Family history of premature coronary artery disease Social History Smoking and tobacco status: never smoked Vitals/I&O/Wt Last Vital Signs Temp 98.1 F 06/26/21 05:27 Pulse 94 06/26/21 05:27 Resp 23 H 06/26/21 05:27 BP 140/77 06/26/21 05:27 Pulse Ox 97 06/26/21 05:27 Weight last 48 hrs Weight 122.016 kg Weight 122.016 kg Weight 117.934 kg Physical Exam Narrative: EXAM NARRATIVE: General: No acute distress, AO x3 HEENT: PERRLA, pupils bilaterally equal and reactive, pallors not present Chest: Normal vesicular breath sounds, no added sounds, equal good air entry bilaterally CVS: S1-S2 regular, no murmurs, no tachycardia, no gallops, no rubs Abdomen: Soft, nontender, no organomegaly, bowel sounds present Neuro: No focal deficits, no facial deformity, AO x3, power 5/5 in all limbs Extremities: No swelling edema Data : 06/25/21 20:36 06/25/21 20:36 A&P Assessment and plan (1) Chest pain: Patient with past medical history as outlined above with multiple cardiac risk factors, recently reported abnormal stress test at [facility] in April 2021 along with abnormal echocardiogram. States she had an appointment for cardiac catheterization next Thursday. She has recently also been prescribed sublingual nitroglycerin for episodic chest pain. Presented to the ER when chest pain did not resolve with 2 pills of nitroglycerin. Currently she is chest pain-free at the time of my assessment. EKG without acute ST-T wave changes. Baseline and 2-hour troponin within range, negative delta. Awaiting 6-hour delta troponin. D-dimer negative. Given her recently abnormal stress test and ongoing symptoms, most appropriate way to proceed would be to get a cardiology assessment for possible cardiac catheterization, however patient is undecided at this time if she wishes to proceed with cardiology evaluation at [facility] versus leave here and go to [facility] in the morning. She will would like to call her business operations manager office in the morning if her 6-hour delta troponin returns normal and ideally follow-up at [facility]. She wants to discuss this with her family as well For now we will await the 6-hour troponin, monitor patient overnight on telemetry for any further episodes of chest pain, holding off on cardiology consult until the morning when patient decides if she wishes to establish care here. Continue aspirin, atorvastatin, Cardizem and insulin in the interim. Obtain recent records from [facility] prn nitro and morphine for pain management Status: Acute (2) Unstable angina: as above Status: Acute Attestations Medical Necessity Statement*: less than 2 midnight admission anticipated Coding Level of Care Code Acute Hop Strainer for Terell Torrez Diagnoses Chest pain R07.9 Unstable angina I20.0
--- NOTE | 2021-06-26 08:00 | PC.NURSE ---
Patient used her own continuous glucose monitor to check blood sugar. Reports BG of 173. Patient refused insulin and states my sugars drop quickly when I dont eat .
--- NOTE | 2021-06-26 08:58 | USCV_ITS ---
Lisa Diana Age: 46 Gender: F : 1975 Exam Date: 06/26/2021 11:40 Ordering Phys: Jesus Bassett MD Technologist: JAQUELINE Exam Location: [facility] [place] Indication: s/p SD Feb 2021. c/o intermittent chest pain. No hx cardiac intervention. BP: 165 / 90 HR: 87 Rhythm: Sinus Technical Quality: Adequate MEASUREMENTS (Male / Female) Normal Values 2D ECHO LV Diastolic Diameter PLAX 5.1 cm 4.2 - 5.9 / 3.9 - 5.3 cm LV Systolic Diameter PLAX 3.2 cm IVS Diastolic Thickness 1.0 cm 0.6 - 1.0 / 0.6 - 0.9 cm IVS Systolic Thickness 1.8 cm LVPW Diastolic Thickness 1.1 cm 0.6 - 1.0 / 0.6 - 0.9 cm LVPW Systolic Thickness 1.9 cm LVOT Diameter 2.3 cm LV Ejection Fraction 2D Teich 66.5 % LV Ejection Fraction MOD 2C 74.1 % LV Ejection Fraction 2C AL 74.0 % LA Diameter 3.5 cm LA Width 3.8 cm LA Height 5.1 cm RA Width 2.7 cm RA Height 4.0 cm Aorta at Sinotubular Diameter 3.1 cm M-MODE Aortic Annulus Diameter 3.3 cm LA Ao Ratio MM 1.0 MV E Point Septal Separation 0.4 cm DOPPLER AV Peak Velocity 194.0 cm/s LVOT Peak Velocity 87.0 cm/s AV Area Cont Eq vti 2.3 cm squared AV Area Cont Eq pk 1.8 cm squared MV Peak Velocity 137.0 cm/s MV Area PHT 4.4 cm squared Mitral E to A Ratio 0.7 MV E' Velocity 49.0 cm/s Mitral E to MV E' Ratio 12.3 Mitral E to LV E' Lateral Ratio 12.7 Mitral E to LV E' Septal Ratio 12.0 TR Peak Velocity 214.0 cm/s TR Peak Gradient 18.3 mmHg TV Peak E Velocity 71.0 cm/s Right Atrial Pressure 5.0 mmHg Pulmonary Artery Systolic Pressu 23.3 mmHg PV Peak Velocity 111.0 cm/s RV Acceleration Time 0.1 s RV Ejection Time 0.3 s RV AcT/ET 0.3 FINDINGS Left Ventricle Normal left ventricular cavity size. Normal left ventricular systolic function. No regional wall motion abnormalities. Left ventricular ejection fraction is estimated at 66 %. Grade I/IV diastolic dysfunction (abnormal relaxation filling pattern), normal to mildly elevated filling pressures. Right Ventricle The right ventricle is normal in size and function. Right Atrium The right atrium is normal in size. Left Atrium The left atrium is normal in size. Mitral Valve Moderately thickened mitral valve. No mitral valve stenosis. Trace mitral valve regurgitation. Aortic Valve Moderate aortic valve calcification. No aortic valve stenosis. Mild aortic valve regurgitation. Tricuspid Valve Structurally normal tricuspid valve without significant stenosis or regurgitation. Pulmonary artery systolic pressure is normal. Pulmonic Valve Structurally normal pulmonic valve without significant stenosis. There is no pulmonic regurgitation. Pericardium Normal pericardium without effusion. Aorta Normal ascending aorta dimension. CONCLUSIONS 1-Normal left ventricular cavity size. Normal left ventricular systolic function. No regional wall motion abnormalities. Left ventricular ejection fraction is estimated at 66 %. Grade I/IV diastolic dysfunction (abnormal relaxation filling pattern), normal to mildly elevated filling pressures. 2-Moderate aortic valve calcification. No aortic valve stenosis. Mild aortic valve regurgitation. 3-Moderately thickened mitral valve. No mitral valve stenosis. Trace mitral valve regurgitation. 4-There is no pericardial effusion. 5-Pulmonary artery systolic pressure is within normal limits. 6-Right atrial pressure is around 5 mm of mercury. 7-There are no prior echocardiogram studies to compare. Bacilio Ardon MD (Electronically Signed) Final Date: 26 June 2021 17:08 S
[2021-06-26] MEDS: magnesium oxide 400 mg tablet 500 MG PO (09:47)
[2021-06-26] MEDS: levothyroxine 50 mcg Tablet PO (09:48)
[2021-06-26] MEDS: losartan 50 mg Tablet PO (09:48)
[2021-06-26] MEDS: atorvastatin 40 mg Tablet PO (09:48)
[2021-06-26] MEDS: aspirin 81 mg Chew Tablet PO (09:48)
[2021-06-26] MEDS: dilTIAZem ER (24HR) 240 mg Capsule PO (09:49)
--- NOTE | 2021-06-26 09:53 | PC.CHAP ---
Pastoral Care Encounter/Spiritual Assessment Type of Contact [] Declined assistant sales center manager visit [] Patient/Family/Request visit [] Outpatient visit [] Follow-up visit [] Physician referral [] Code/Alert [] Routine visit [] Staff referral [] Actively dying [] Patient sleeping [] Family support [] [] Out of room [] Palliative care [] [] Receiving care in room [] Pre-surgical visit [] Trauma [] Long length of stay [] ICU visit [] Other: Relational/Emotional Strength [] Patient feels connected with others/family/visitors/staff [] Distress [] Loneliness/isolation [] Abandonment Spirituality of Patient [] Person of Esperanza [] Attends Hoahaoism of their Esperanza [] Believes in Prayer [] Reads Bible or Denominational materials [] There are Spiritual issues to be addressed Healthcare Translator Interventions [] Prayer [] Active listening [] Non-anxious presence [] Spiritual/emotional support [] Crisis/trauma care [] Spiritual counseling [] Bereavement support [] Provided bereavement packet [] Provided Bible/devotional materials [] Provided toy/stuffed animal, coloring book to patient or family member [] Provided Communion [] Anointing/[place] [] Salvation [] Completed spiritual assessment [] Other: Impact on Illness or Injury [] Angry [] Fearful [] Anxious [] Often cries [] Exhaustion [] Unable to work [] Unable to attend jew [] Unable to walk/stand [] Unable to read [] Unable to drive [] Unable to eat/drink [] Unable to sleep [] Unable to be with family [] Patient intubated [] Other: Summary Time spent with patient Pastoral Care Encounter/Spiritual Assessment Type of Contact [] Declined assistant sales center manager visit [] Patient/Family/Request visit [] Outpatient visit [] Follow-up visit [] Physician referral [] Code/Alert [x] Routine visit [] Staff referral [] Actively dying [] Patient sleeping [] Family support [] [] Out of room [] Palliative care [] [] Receiving care in room [] Pre-surgical visit [] Trauma [] Long length of stay [] ICU visit [] Other: Relational/Emotional Strength [] Patient feels connected with others/family/visitors/staff [] Distress [] Loneliness/isolation [] Abandonment Spirituality of Patient [] Person of Esperanza [] Attends Hoahaoism of their Esperanza [] Believes in Prayer [] Reads Bible or Denominational materials [] There are Spiritual issues to be addressed Healthcare Translator Interventions [x] Prayer [x] Active listening [x] Non-anxious presence [x] Spiritual/emotional support [] Crisis/trauma care [] Spiritual counseling [] Bereavement support [] Provided bereavement packet [] Provided Bible/devotional materials [] Provided toy/stuffed animal, coloring book to patient or family member [] Provided Communion [] Anointing/[place] [] Salvation [x] Completed spiritual assessment [] Other: Impact on Illness or Injury [] Angry [] Fearful [] Anxious [] Often cries [] Exhaustion [] Unable to work [] Unable to attend jew [] Unable to walk/stand [] Unable to read [] Unable to drive [] Unable to eat/drink [] Unable to sleep [] Unable to be with family [] Patient intubated [] Other: Summary on his way ... patient a little distraught... her heart doctor from [place] out of town for the week... needs procedure done now Time spent with patient 10 min
--- NOTE | 2021-06-26 10:56 | PC.NURSE ---
BG = 169 @1652.
--- NOTE | 2021-06-26 15:06 | P.DS_ITS ---
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 He had a recent stress test at [facility] in April 2021 which was noted to be abnormal. States that she was told she has apical wall abnormalities and also a low ejection fraction, follow-up was recommended with cardiology and she has an upcoming appointment on next Thursday. It appears the plan was to do a cardiac catheterization. She presented to the emergency room tonight with chief complaints of chest pain that started at around 7 PM. Patient was managed [facility] for ACS, cardiology was consulted, her troponins were within normal limits, no significant delta troponin, EKG no acute ST-T wave changes, no current chest pain complaints, no significant telemetry events. Patient wanted further work-up to be done by her extension edger at [facility], she went to have a coronary angiogram done at [facility]. I had cardiology evaluate her, discussed medical management versus intervention here at [facility]. Patient declined intervention here at [facility]. Thus patient was medically managed, discharged on her home aspirin and statin, nitro as needed for chest pain. Patient's extension edger at [facility] wanted us to discharge her on Imdur and follow-up with her next week for coronary angiogram. We will discharge her on Imdur 30 mg once daily. Patient was advised if she would have recurrent chest pain to go to the emergency room. Physical Exam Const: COMMON NORMALS: no acute distress and patient oriented x3 Resp: COMMON NORMALS: normal respiratory effort, No retractions, No use of accessory muscles and clear to auscultation bilaterally AUSCULTATION: clear to auscultation bilaterally Cardio: COMMON NORMALS: regular rate, regular rhythm, S1 normal heart sound present and S2 normal heart sound present RATE: regular rate RHYTHM: regular rhythm HEART SOUNDS: S1 normal heart sound present and S2 normal heart sound present GI: COMMON NORMALS: Normal to inspection, nondistended, normoactive bowel sounds present, Soft to palpation and non-tender PALPATION: Yes Soft to palpation Extremity: COMMON NORMALS: no pedal edema Neuro: COMMON NORMALS: patient oriented x3 Psych: COMMON NORMALS: mental status grossly normal Discharge Data Data Completed and Pending: Completed Studies During Hospitalization Category Date Time Status XR chest 1V agus ble [id number] Urgent Exams 06/25/21 20:33 Completed Pending at discharge Category Date Time Status CV. echo complete * [id number] Routine Ultrasound 06/26/21 08:58 Taken Labs from last 24 hours 06/26/21 06/25/21 06/25/21 02:38 22:15 20:36 WBC RBC Hgb Hct MCV MCH MCHC RDW Plt Count MPV Neut % (Auto) Lymph % (Auto) Lawrence % (Auto) Eos % (Auto) Baso % (Auto) Neut # (Auto) Lymph # (Auto) Lawrence # (Auto) Eos # (Auto) Baso # (Auto) Nucleated RBC % (a uto) Nucleated RBCs # D-Dimer Sodium Potassium Chloride Carbon Dioxide Anion Gap BUN Creatinine GFR Calculation Glucose Calculated Osmolal ity Calcium Total Bilirubin AST ALT Alkaline Phosphata se Troponin T Baselin e 9 Troponin T 120 Min missael 7.87 Delta Troponin T -1.13 L Troponin T Hi Sens 6Hr 9.99 Troponin T Hi Sens 6Hr Delta 0.99 NT-Pro-B Natriuret Pep Total Protein Albumin Globulin Lipase 06/25/21 06/25/21 06/25/21 20:36 20:36 20:30 WBC 7.4 RBC 4.81 Hgb 13.8 Hct 40.6 MCV 84.4 MCH 28.7 MCHC 34.0 RDW 12.7 Plt Count 291 MPV 9.1 Neut % (Auto) 57.2 Lymph % (Auto) 29.6 Lawrence % (Auto) 9.3 Eos % (Auto) 2.8 Baso % (Auto) 0.7 Neut # (Auto) 4.24 Lymph # (Auto) 2.2 Lawrence # (Auto) 0.7 Eos # (Auto) 0.2 Baso # (Auto) 0.1 Nucleated RBC % (a uto) 0 Nucleated RBCs # 0.0 D-Dimer 0.33 Sodium 138 Potassium 3.6 Chloride 104 Carbon Dioxide 20 L Anion Gap 17.6 BUN 11 Creatinine 0.6 GFR Calculation 107.2 Glucose 125 H Calculated Osmolal ity 287 Calcium 8.7 Total Bilirubin 0.2 AST 21 ALT 28 Alkaline Phosphata se 158 H Troponin T Baselin e Troponin T 120 Min missael Delta Troponin T Troponin T Hi Sens 6Hr Troponin T Hi Sens 6Hr Delta NT-Pro-B Natriuret Pep 28 Total Protein 6.3 L Albumin 4.1 Globulin 2.2 Lipase 40 Vitals: Last Vital Signs Temp 98.0 F 06/26/21 07:15 Pulse 91 06/26/21 09:45 Resp 17 06/26/21 09:45 BP 162/65 06/26/21 09:48 Pulse Ox 94 06/26/21 09:45 Discharge Plan Discharge Patient Disposition: Home Condition: Stable Prescriptions: Continued Leukeran 2 mg Tablet 4 mg PO DAILY RF: 0 diltiazem HCl 240 mg Tablet Extended Release 24 Hr 240 mg PO DAILY RF: 0 Humira Pen 40 mg/0.8 mL Pen Injector Kit 40 mg SUBCUT Q14D RF: 0 Toujeo Max U-300 SoloStar 300 unit/mL (3 mL) Insulin Pen 100 unit SUBCUT DAILY RF: 0 atorvastatin 40 mg tablet 40 mg PO DAILY RF: 0 vitamin A 2,400 mcg Capsule 2,400 mcg PO DAILY RF: 0 magnesium 500 mg Tablet 500 mg PO DAILY RF: 0 clonidine HCl 0.1 mg tablet 0.1 mg PO Q8H PRN (Reason: Blood Pressure) RF: 0 tizanidine 4 mg tablet 4 mg PO BID PRN (Reason: Muscle Pain) RF: 0 Synthroid 50 mcg tablet 50 mcg PO DAILY RF: 0 tacrolimus 0.1 % ointment 1 applic TOPICAL DAILY PRN (Reason: Rash) RF: 0 nitroglycerin 0.4 mg tablet, sublingual 0.4 mg sublingual Q5MIN PRN (Reason: Chest Pain) RF: 0 aspirin 81 mg Tablet,Chewable 81 mg PO DAILY RF: 0 irbesartan 150 mg tablet 150 mg PO DAILY RF: 0 vitamin E 400 unit Capsule 400 unit PO DAILY RF: 0 Humalog KwikPen Insulin 100 unit/mL insulin pen See Rx Instructions .ROUTE .COMPLEX RF: 0 albuterol sulfate 90 mcg/actuation HFA aerosol inhaler 2 puff inhalation Q6H PRN (Reason: Shortness Of Breath) RF: 0 Discharge Orders: Discharge Order (Routine); Ordered 06/26/21 Ordered By: Jesus Bassett Discharge Diet: Cardiac Discharge Activity: Resume usual activity Patient Instructions: Opioid Safety Activity Restrictions/Additional Instructions: - Please follow-up with cardiology in [place] -If you have recurrent chest pain please go to emergency room Discharge Attestations Time Spent in Discharge Care*: less than 30 min Quality Metrics Clinical Quality Measures During this hospital stay, did patient experience: None Coding Level of Care Code Acute g DC note Diagnoses Chest pain R07.9 Unstable angina I20.0
[2021-06-26] MEDS: insulin regular-human 8 UNIT in SYRINGE 1 EACH 7 UNIT IVP (15:14)
--- NOTE | 2021-06-26 16:47 | PM.CONSULT ---
Providers/Reason For Consult Consulting Physician/Specialty*: Cardiology Reason for Consult*: Chest pain Attending Physician: Jesus Bassett MD History of Present Illness History of Present Illness Lisa Diana is a 46 year old female past medical history significant for behcet's disease dyslipidemia diabetes mellitus on immunosuppressive presented with worsening of chest pain relieved with nitroglycerin. Patient is following up with roving technician, she is scheduled to undergo left heart cath. Today she presented with chest pain relieved with nitroglycerin she was ruled out for acute coronary syndrome. Echocardiogram showed normal ejection fraction. Patient recently had a stress test performed in outside hospital I have reviewed the result there was small area of apical ischemia which could be thinning artifact. I have detailed discussion with the patient I have offered her left heart cath versus coronary CTA. Patient and her by bedside they refused and would like to follow-up with their roving technician. We will start patient on isosorbide mononitrate and refer her to her roving technician. Patient has been advised in case of worsening of chest pain or continuous chest pain she can always come back to ER. She is advised to follow-up with her roving technician. They said they have contacted their roving technician and he will see them. Review of Systems General: Reports: 10 or more systems reviewed and unremarkable except in HPI and below Const: Denies: fever(s), chills or body aches Eyes: Denies: change in vision, blurry vision or photophobia ENMT: Reports: hoarseness; Denies: throat pain, enlarged tonsils, odynophagia or nasal congestion Card: Denies: chest pain, palpitations, irregular heart rhythm, edema, swelling of feet/ankles, lightheadedness, pre-syncope, dyspnea on exertion or orthopnea Resp: Denies: dyspnea, productive cough, non-productive cough, wheezing, stridor, pain on inspiration, change in phlegm color, hemoptysis or chest congestion GI: Denies: abdominal pain, nausea, vomiting, hematemesis, coffee ground emesis, dysphagia, heartburn, diarrhea, constipation, GI cramping, change in stool character, hematochezia or melena : Denies: flank pain, difficulty voiding, dysuria, urinary frequency, urinary urgency, urinary hesitancy or hematuria Musc: Denies: neck pain, back pain, extremity pain, joint swelling, joint warmth or deformity Neuro: Denies: headache(s), numbness in extremities, weakness in extremities, sensory changes, difficulty walking, frequent falls, dizziness, vertigo, behavioral changes, Slurred speech present or seizure-like activity Psych: Denies: anxiety, depression, suicidal ideation or homicidal ideation Endo: Denies: polyuria, polydipsia, tired all the time, cold intolerance or hot flashes Brandyn/Lymph: Denies: easy bruising or easy bleeding Medications/Allergies Home Medications Medication Instructions Recorded Confirmed Last Taken Type Humira Pen 40 mg SUBCUT Q14D 06/14/20 06/25/21 Unknown History Leukeran 4 mg PO DAILY 06/14/20 06/25/21 06/25/21 History Toujeo Max U-300 SoloStar 100 unit SUBCUT DAILY 06/14/20 06/25/21 06/25/21 History diltiazem HCl 240 mg PO DAILY 06/14/20 06/25/21 06/25/21 History Humalog KwikPen Insulin See Rx Instructions .ROUTE .COMPLEX 06/25/21 06/25/21 Unknown History Synthroid 50 mcg PO DAILY 06/25/21 06/25/21 06/25/21 History albuterol sulfate 2 puff INHALATION Q6H PRN 06/25/21 06/25/21 Unknown History aspirin 81 mg PO DAILY 06/25/21 06/25/21 06/25/21 History atorvastatin 40 mg PO DAILY 06/25/21 06/25/21 06/24/21 History clonidine HCl 0.1 mg PO Q8H PRN 06/25/21 06/25/21 Unknown History irbesartan 150 mg PO DAILY 06/25/21 06/25/21 06/25/21 History magnesium 500 mg PO DAILY 06/25/21 06/25/21 06/25/21 History nitroglycerin 0.4 mg SUBLINGUAL Q5MIN PRN 06/25/21 06/25/21 Unknown History tacrolimus 1 applic TOPICAL DAILY PRN 06/25/21 06/25/21 Unknown History tizanidine 4 mg PO BID PRN 06/25/21 06/25/21 Unknown History vitamin A 2,400 mcg PO DAILY 06/25/21 06/25/21 06/25/21 History vitamin E 400 unit PO DAILY 01/05/0606/25/21 06/25/21 History isosorbide mononitrate 30 mg PO DAILY 30 Days #30 tab 06/26/21 Unknown Rx Allergies Allergy/AdvReac Type Severity Reaction Status Date / Time Latex, Natural Rubber Allergy ALGY-Hives Verified 05/10/21 17:58 Sulfa (Sulfonamide Allergy ALGY-Hives Verified 05/10/21 17:58 Antibiotics) Current Medications Generic Name Dose Route Start Last Admin Trade Name Freq PRN Reason Stop Dose Admin Aspirin 81 mg 06/26/21 09:00 06/26/21 09:48 Aspirin 81 Mg Chew Tablet PO 81 mg DAILY RODRIGO Administration Atorvastatin Calcium 40 mg 06/26/21 09:00 06/26/21 09:48 Atorvastatin 40 Mg Tablet PO 40 mg DAILY RODRIGO Administration Diltiazem HCl 240 mg 06/26/21 09:00 06/26/21 09:49 Diltiazem Er (24hr) 240 Mg Capsule PO 240 mg DAILY RODRIGO Administration Insulin Human Lispro 0 unit 06/26/21 08:00 06/26/21 12:21 Insulin Lispro 100 Unit/1 Ml SUBCUT Not Given WM&BEDTIME [facility] Protocol Levothyroxine Sodium 50 mcg 06/26/21 09:00 06/26/21 09:48 Levothyroxine 50 Mcg Tablet PO 50 mcg DAILY RODRIGO Administration Losartan Potassium 50 mg 06/26/21 09:00 06/26/21 09:48 Losartan 50 Mg Tablet PO 50 mg DAILY RODRIGO Administration Magnesium Oxide 500 mg 06/26/21 09:00 06/26/21 09:47 Magnesium Oxide 400 Mg Tablet PO 500 mg DAILY RODRIGO Administration Nitroglycerin 0.4 mg 06/25/21 21:38 06/25/21 21:47 Nitroglycerin 0.4 Mg Sublingual Tablet SUBLINGUAL 0.4 mg Q5M PRN Administration CHEST PAIN PFSH Acute PFSH: Medical History (Updated 06/26/21 @ 21:14 by Bacilio Ardon MD) Behcet's disease History of asthma History of hypothyroidism Hx of diabetes mellitus Hx of endocrine hypertension Hx of steroid therapy Surgical History No significant past surgical history Family History Denies family history of Family history of premature coronary artery disease Social History Smoking and tobacco status: never smoked Vitals/I&O/Wt Last Vital Signs Temp 98.0 F 06/26/21 07:15 Pulse 104 H 06/26/21 14:00 Resp 17 06/26/21 09:45 BP 162/65 06/26/21 09:48 Pulse Ox 94 06/26/21 09:45 06/26/21 06/26/21 06/26/21 06:59 14:59 22:59 Intake Total 0 / 0 Balance 0 / 0 Weight last 48 hrs Weight 269 lb Weight 269 lb Weight 260 lb Physical Exam Narrative: EXAM NARRATIVE: GENERAL: Patient is alert, awake and oriented x3. NECK: No jugular vein distension. HEENT: No cyanosis. No icterus. No pallor. HEART: Regular S1 and S2. No murmur, rub or gallop. LUNGS: Clear to auscultate bilaterally. ABDOMEN: Soft, nontender and nondistended. Positive bowel sounds. No guarding, rebound or tenderness. CENTRAL NERVOUS SYSTEM: Grossly nonfocal. EXTREMITIES: Lower extremities without edema bilaterally. A&P Assessment and plan (1) Chest pain: Patient has been ruled out for acute coronary syndrome there is no dynamic EKG changes. No EKG changes suggestive of ischemia. Patient has been offered left heart cath versus CTA further coronary. She refused and would like to follow-up with her roving technician echocardiogram showed normal ejection fraction without wall motion abnormality. She also has recent stress test which showed mild apical ischemia which could be an artifact. Since she is chest pain-free and there is a possibility that it may not be has significant coronary artery disease and because of the fact she would like to follow-up with her roving technician she can be discharged home with advised to come back if she has recurrent chest pain. Status: Acute Qualifiers: Chest pain type: precordial pain Qualified Code(s): R07.2 - Precordial pain Consult Attestations Medical Necessity Statement: As per medicine Coding Level of Care Code New Pt Acute Sizing Sponger for [facility] Fwd Patient Type New History Detailed Exam Detailed Medical Decision Making Moderate Complexity Diagnoses Chest pain R07.2 Chest pain type: precordial pain
--- NOTE | 2021-06-26 16:56 | PC.NURSE ---
Per patient her BG was 153 at 1100. She declined noon insulin per sliding scale. At 1400 after patient completed lunch, she stated her BG [id number]. Nurse confirmed this reading on patient's continuous reading glucometer. Patient requested insulin. Contacted Dr. Bassett regarding patient request for insulin. Order received.
--- NOTE | 2021-06-26 17:00 | PC.NURSE ---
Patient reports BG of 125 at 1645.
== END 2021-06-26 18:40 | disposition home or self-care (01) ==
LOC: ER 23:48 → CSU 23:55
PROVIDERS: Admitting Provider Student in an Organized Health Care Education/Training Program; Emergency Provider Emergency Medicine; Visit Provider Family Medicine
DX: I20.0 Unstable angina (principal); Z86.16 Personal history of COVID-19; J45.909 Unspecified asthma, uncomplicated; E03.9 Hypothyroidism, unspecified; E11.9 Type 2 diabetes mellitus without complications; Z79.4 Long term (current) use of insulin
CPT/HCPCS: 36415; 71045; 80053; 83690; 83880; 84484; 85025; 85378; 93005; 93306; 94660; 96365; 96375; 96376; 99285; G0378; J1815; J2270; J2405

== ENCOUNTER → 2021-08-05 12:38 | Outpatient (BNVA) | payer BC, MEDICARE, SELFPAY | PROVIDERS: Visit Provider Registered Nurse Neonatal Intensive Care | DX: M79.645 Pain in left finger(s) (principal); W20.8XXA Other cause of strike by thrown, projected or falling object, initial encounter | CPT/HCPCS: 73130 ==

== ENCOUNTER 2023-02-20 06:00 | Outpatient (RCR) | payer BC, MEDICARE, SELFPAY | END 2023-03-14 23:59 | disposition home or self-care (01) | LOC: SOT 06:00 | PROVIDERS: Visit Provider Psychiatry & Neurology Epilepsy | DX: G56.03 Carpal tunnel syndrome, bilateral upper limbs (principal); G62.9 Polyneuropathy, unspecified | CPT/HCPCS: 97110; 97166 ==

== ENCOUNTER 2023-03-15 06:00 | Outpatient (RCR) | payer BC, MEDICARE, SELFPAY | END 2023-04-14 23:59 | disposition home or self-care (01) | LOC: SOT 06:00 | PROVIDERS: Visit Provider Psychiatry & Neurology Epilepsy | DX: G56.03 Carpal tunnel syndrome, bilateral upper limbs (principal); G62.9 Polyneuropathy, unspecified | CPT/HCPCS: 97530 ==

== ENCOUNTER → 2023-08-27 08:24 | Outpatient (BNVA) | payer BC, MEDICARE, SELFPAY | PROVIDERS: Visit Provider Nurse Practitioner Family | DX: R30.0 Dysuria (principal) | CPT/HCPCS: 81000 ==

== ENCOUNTER → 2024-06-30 11:09 | Outpatient (BNVA) | payer BC, MEDICARE, SELFPAY | PROVIDERS: Visit Provider Registered Nurse Neonatal Intensive Care | DX: R39.9 Unspecified symptoms and signs involving the genitourinary system (principal); N30.00 Acute cystitis without hematuria | CPT/HCPCS: 81000; 87077; 87086; 87184 ==

== ENCOUNTER → 2024-12-30 13:44 | Outpatient (BNVA) | payer BC, MEDICARE, SELFPAY | PROVIDERS: Visit Provider Emergency Medicine | DX: R30.0 Dysuria (principal); N28.9 Disorder of kidney and ureter, unspecified; R39.9 Unspecified symptoms and signs involving the genitourinary system | CPT/HCPCS: 80048; 81000; 87077; 87086; 87184 ==

== ENCOUNTER → 2025-05-03 13:14 | Outpatient (BNVA) | payer BC, MEDICARE, SELFPAY | PROVIDERS: Visit Provider Podiatrist Foot & Ankle Surgery | DX: M25.571 Pain in right ankle and joints of right foot (principal); M79.671 Pain in right foot; S92.35 Fracture of fifth metatarsal bone; X58.XXXD Exposure to other specified factors, subsequent encounter; M21.371 Foot drop, right foot | CPT/HCPCS: 73610; 73620 ==